=== PATIENT | female | born 1945 | race Hispanic/Latino ===

== ENCOUNTER 2022-12-06 10:53 | Emergency (ER) | payer OTHER ==
[~2022-12-06] VITALS: Ht 162.6 cm; Wt 65.3 kg
[2022-12-06 11:01] VITALS: BP 168/83
[2022-12-06] MEDS ORDERED: KETOROLAC 30MG VIAL (30MG/ML) IM ONE (11:30)
[2022-12-06] MEDS ORDERED: NAPR375T6 PO (12:43)
== END 2022-12-06 12:51 | disposition home or self-care (01) ==
LOC: EDH 10:53
DX: S42.431A Displaced fracture (avulsion) of lateral epicondyle of right humerus, initial encounter for closed fracture (principal); M19.90 Unspecified osteoarthritis, unspecified site; E78.00 Pure hypercholesterolemia, unspecified; I10 Essential (primary) hypertension; W01.0XXA Fall on same level from slipping, tripping and stumbling without subsequent striking against object, initial encounter; Y93.89 Activity, other specified; Y92.89 Other specified places as the place of occurrence of the external cause; Y99.8 Other external cause status
CPT/HCPCS: 99283; 73030; 96372; J1885

== ENCOUNTER 2022-12-12 06:18 | Day surgery (SDC) | payer MEDICARE ==
[2022-12-11 11:40] LABS: BASOPHILS % (AUTO) 0.5 % (0.0-5.0); EOSINOPHILS % (AUTO) 3.6 % (0.0-8.0); HEMATOCRIT 40.8 % (36-48); LYMPHOCYTES % (AUTO) 34.1 % (21.0-51.0); MEAN CORPUSCULAR HEMOGLOBIN 28.5 pg (27.0-33.0); MEAN CORPUSCULAR HGB CONC 31.6 g/dL (32.0-36.0); MEAN CORPUSCULAR VOLUME 90.1 fL (79-99); MONOCYTES % (AUTO) 9.7 % (3.0-13.0); NEUTROPHILS % (AUTO) 51.8 % (40.0-77.0); PLATELET COUNT (AUTO) 290 K/uL (130-400); RED BLOOD CELL COUNT(AUTO) 4.53 MIL/uL (4.00-5.50); RED CELL DISTRIBUTION WIDTH 13.8 % (11.0-15.5); WHITE BLOOD COUNT (AUTO) 6.4 K/uL (4.8-10.8)
[2022-12-11 11:53] LABS: CREATININE 0.9 mg/dL (0.5-1.5); POTASSIUM 4.8 mmol/L (3.5-5.1)
[2022-12-11 12:00] LABS: INR 0.95 (0.85-1.15); PROTHROMBIN TIME 10.4 SEC (9.6-11.6)
[2022-12-11 12:12] VITALS: BP 165/80
[~2022-12-12] VITALS: Ht 162.6 cm; Wt 67.7 kg
[2022-12-12] VITALS (17 sets, daily range): BP systolic 115–156; BP diastolic 60–96
[~2022-12-12 06:18] MED LIST: NAPR375T6 PO
[2022-12-12] MEDS ORDERED: CEFAZOLIN SODIUM 2 GM VIAL ONE (06:26)
[2022-12-12] MEDS ORDERED: 0.9%NACL 1000ML 1,000 ML IV ONE (06:26)
[2022-12-12] MEDS ORDERED: ACET-3338 PO (06:31)
[2022-12-12] MEDS ORDERED: LORA10TA7 PO (06:31)
[2022-12-12] MEDS ORDERED: METF-444 PO (06:31)
[2022-12-12] MEDS ORDERED: vitamin d PO (06:31)
[2022-12-12] MEDS ORDERED: MELO-108 PO (06:31)
[2022-12-12] MEDS ORDERED: OMEP40CA21 PO (06:31)
[2022-12-12] MEDS ORDERED: LOSA25TA41 PO (06:31)
[2022-12-12] MEDS ORDERED: CETI10TA57 PO (06:31)
[2022-12-12] MEDS ORDERED: ROPIVACAINE 0.5% 5MG/ML 30ML IJ ONE (06:53)
[2022-12-12] MEDS ORDERED: FAMOTIDINE 20MG VIAL IV ONE (07:11)
[2022-12-12] MEDS ORDERED: HYDROMORPHONE 1 MG INJ ONE (07:11)
[2022-12-12] MEDS ORDERED: LIDOCAINE PF 100MG/5ML (2%) SYRINGE 5ML ONE (07:14)
[2022-12-12] MEDS ORDERED: PHENYLEPHRINE HCL 10 MG/ML 1ML VIAL IV ONE (07:15)
[2022-12-12] MEDS ORDERED: ONDANSETRON 4MG INJ ONE (07:15)
[2022-12-12] MEDS ORDERED: PROPOFOL 10 MG/ML 20ML VIAL IV ONE (07:15)
[2022-12-12] MEDS ORDERED: GLYCOPYRROLATE 1 MG/5 ML SYRINGE ONE (07:15)
[2022-12-12] MEDS ORDERED: FENTANYL CITRATE PF 50 MCG/1 ML 2ML VIAL ONE ×3 (07:15→10:09)
[2022-12-12] MEDS ORDERED: ROCURONIUM 10MG/1ML SYR 10 MG/ML ML ONE (07:16)
[2022-12-12] MEDS ORDERED: CEFAZOLIN SODIUM 2 GM VIAL IVPB ONE (08:04)
[2022-12-12] MEDS ORDERED: NEOSTIGMINE 5MG/5ML SYR IV ONE (08:51)
[2022-12-12] MEDS ORDERED: KETOROLAC 30MG VIAL (30MG/ML) ONE (11:14)
== END 2022-12-12 12:00 | disposition home or self-care (01) ==
LOC: DAH 06:18
PROVIDERS: ATTEND Orthopaedic Surgery
DX: S42.251A Displaced fracture of greater tuberosity of right humerus, initial encounter for closed fracture (principal); Z20.822 Contact with and (suspected) exposure to COVID-19; I10 Essential (primary) hypertension; E11.9 Type 2 diabetes mellitus without complications; K21.9 Gastro-esophageal reflux disease without esophagitis; M19.90 Unspecified osteoarthritis, unspecified site; Z79.899 Other long term (current) drug therapy; Z90.49 Acquired absence of other specified parts of digestive tract; Z79.84 Long term (current) use of oral hypoglycemic drugs; Z90.710 Acquired absence of both cervix and uterus; W19.XXXA Unspecified fall, initial encounter; Y93.89 Activity, other specified; Y92.89 Other specified places as the place of occurrence of the external cause
CPT/HCPCS: 80048; 85025; 85610; 85730; 87426; 36415; 71045; 93005; 23615; 64415; 82948 ×2; 73060; A4663; J7030 ×2; J3490 ×2; J3010 ×3; J2710; J2001; J2704; J2405; J1885; J2795; J2370; J0690 ×2; A6223; A6219; A4649 ×2; A4930; C1776; C1713 ×4; A5120; A4215; A4223; A4222; A4221; J1170